=== PATIENT | female | born 1960 ===

== ENCOUNTER 2018-04-15 19:43 | Emergency (ER) | payer SELFPAY ==
[2018-04-15] MEDS ORDERED: Sodium Chloride 0.9% 1,000 ML IV STA (23:15)
[2018-04-15] MEDS ORDERED: Albuterol-Ipratrop 3 mg / 0.5 (3 ml) UD IH STA (23:15)
--- NOTE | 2018-04-15 23:21 | ED PDOC ---
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 Associated bilateral ear fullness, sore throat and intermittent fevers, 102F earlier today. Patient also reports dysuria x 1 day with associated lower abdomen and back pain. Denies nausea/vomiting, chest pain, shortness of breath , palpitations, abdominal pain, changes in bowel movements, recent travel, sick contacts. Last dose Advil taken 14:00. Past Medical History Reviewed: Historical Data, Nursing Documentation, Vital Signs Vital Signs: Last Vital Signs Temp 99.4 F 04/15/18 21:27 Pulse 84 04/15/18 21:27 Resp 19 04/15/18 21:27 BP 126/69 04/15/18 21:27 Pulse Ox 99 04/16/18 02:12 - Medical History PMH: No Chronic Diseases - Surgical History Surgical History: No Surg Hx - Family History Family History: States: Unknown Family Hx - Living Arrangements Living Arrangements: With Family - Home Medications Home Medications: Ambulatory Orders Medication Instructions Recorded Famotidine [Pepcid] 20 mg PO BID #30 tab 06/07/16 Naproxen [Naprosyn] 500 mg PO Q6 #30 tablet 06/07/16 Ciprofloxacin HCl [Cipro] 500 mg PO BID #14 tab 04/16/18 Fluticasone Nasal [Flonase] 1 actuation NS BID #1 bottle 04/16/18 guaiFENesin/Dextromethorphan 1 - 2 tab PO Q12 PRN #20 tab 04/16/18 [guaiFENesin/DM 600-30 mg] - Allergies Allergies/Adverse Reactions: Allergies Allergy/AdvReac Type Severity Reaction Status Date / Time No Known Allergies Allergy Verified 06/07/16 19:19 Review of Systems ROS Statement: Except As Marked, All Systems Reviewed And Found Negative Constitutional: Positive for: Fever, Chills ENT: Positive for: Nose Congestion, Throat Pain Respiratory: Positive for: Cough, Sputum Genitourinary Female: Positive for: Dysuria Physical Exam - Reviewed Nursing Documentation Reviewed: Yes Vital Signs Reviewed: Yes - Physical Exam Appears: Positive for: Well, Non-toxic, No Acute Distress Head Exam: Positive for: ATRAUMATIC, NORMAL INSPECTION, NORMOCEPHALIC Skin: Positive for: Normal Color Eye Exam: Positive for: Normal appearance ENT: Positive for: Nasal Congestion, Pharyngeal Erythema. Negative for: Tonsillar Exudate, Tonsillar Swelling Cardiovascular/Chest: Positive for: Regular Rate, Rhythm Respiratory: Positive for: Normal Breath Sounds Gastrointestinal/Abdominal: Positive for: Normal Exam, Bowel Sounds, Soft, Tenderness (diffuse lower discomfort to palpation. b/l flank tenderness). Negative for: Guarding, Rebound Back: Positive for: Normal Inspection, L CVA Tenderness, R CVA Tenderness Extremity: Positive for: Normal ROM Neurologic/Psych: Positive for: Alert, Oriented - Laboratory Results Result Diagrams: 04/15/18 23:40 04/15/18 23:40 - ECG O2 Sat by Pulse Oximetry: 99 - Progress ED Course And Treament: labs, flu, strep, urine, CT renal protocol, chest xray, IV fluids, IV toradol, duoneb EXAM: CT Abdomen and Pelvis Without Intravenous Contrast CLINICAL HISTORY: 57 years old, female; Pain; Abdominal pain; Flank; Left; Additional info: Flank pain TECHNIQUE: Axial computed tomography images of the abdomen and pelvis without intravenous contrast. All CT scans at this facility use at least one of these dose optimization techniques: automated exposure control; mA and/or kV adjustment per patient size (includes targeted exams where dose is matched to clinical indication); or iterative reconstruction. Coronal and sagittal reformatted images were created and reviewed. COMPARISON: No relevant prior studies available. FINDINGS: Lung bases: Unremarkable. No mass. No consolidation. ABDOMEN: Liver: Unremarkable. Gallbladder and bile ducts: Unremarkable. No calcified stones. No ductal dilation. Pancreas: Unremarkable. No ductal dilation. Spleen: Unremarkable. No splenomegaly. Adrenals: Unremarkable. No mass. 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 No distal ureteral stone is identified. Stomach and bowel: Unremarkable. No obstruction. No mucosal thickening. There is no wall thickening or pericolonic stranding to suggest colitis. PELVIS: Appendix: No findings to suggest acute appendicitis. Normal appendix. Bladder: Unremarkable. No stones. Reproductive: There is a 2.3 cm cyst in the left ovary. ABDOMEN and PELVIS: Intraperitoneal space: Unremarkable. No free air. No significant fluid collection. Bones/joints: No acute fracture. No dislocation. Soft tissues: Unremarkable. Vasculature: Unremarkable. No abdominal aortic aneurysm. Lymph nodes: Unremarkable. No enlarged lymph nodes. IMPRESSION: Mild hydroureteronephrosis without evidence of a distal ureteral stone. Findings could be secondary to recently passed stone or a nonopaque distal ureteral stone. Clinical correlation recommended. IV rocephin dose ordered On re-eval, patient states she is feeling better. Patient educated on findings, discharged with rx Cipro, Mucinex DM, flonase Advised tylenol/ibuprofen PRN fever/pain Fluids Follow up [facility] 2-3 days Return precautions given Disposition - Clinical Impression Clinical Impression: Left ovarian cyst, Pyelonephritis, URI (upper respiratory infection) - Patient ED Disposition Is Patient to be Admitted: No Counseled Patient/Family Regarding: Studies Performed, Diagnosis, Need For Followup, Rx Given - Disposition Referrals: [facility] [Outside] Disposition: Routine/Home Disposition Time: 03:45 Condition: IMPROVED Prescriptions: Ciprofloxacin HCl [Cipro] 500 mg PO BID #14 tab Fluticasone Nasal [Flonase] 1 actuation NS BID #1 bottle guaiFENesin/Dextromethorphan [guaiFENesin/DM 600-30 mg] 1 - 2 tab PO Q12 PRN # 20 tab PRN Reason: cough and congestion Instructions: Ovarian Cysts, Kidney Infection, Viral Upper Respiratory Infection, Adult (DC) Print Language: KYRGYZ
[2018-04-15] MEDS ORDERED: Albuterol-Ipratrop 3 mg / 0.5 (3 ml) UD ONE (23:40)
[2018-04-16 00:14] LABS: BASO % 0.1 % (0.0-2.0); EOS # 0.2 K/uL (0.0-0.7); EOS % 1.2 % (0.0-4.0); HEMOGLOBIN 11.9 g/dL (12.0-16.0); LYMPH # 2.4 K/uL (1.0-4.3); MEAN CELL VOLUME 88.4 fl (81.0-99.0); MEAN CORPUSCULAR HEMOGLOBIN 29.6 pg (27.0-31.0); MEAN CORPUSCULAR HGB CONC 33.5 g/dL (33.0-37.0); MEAN PLATELET VOLUME 7.7 fl (7.2-11.7); MONO # 1.3 K/uL (0.0-0.8); MONO % 9.6 % (0.0-10.0); NEUT % 72.1 % (50.0-75.0); NRBC % 0.1 % (0.0-0.0); RBC 4.02 Mil/uL (3.80-5.20); RED CELL DISTRIBUTION WIDTH 13.4 % (11.5-14.5); WHITE BLOOD COUNT 13.8 K/uL (4.8-10.8)
[2018-04-16 00:18] LABS: SQUAMOUS EPITHIAL 4 /hpf (0-5); URINE BACTERIA RARE (<OCC); URINE BILIRUBIN NEGATIVE (NEGATIVE); URINE BLOOD MODERATE (NEGATIVE); URINE CLARITY SLIGHTY-CLOUDY (Clear); URINE COLOR YELLOW (YELLOW); URINE GLUCOSE (UA) NEG (Normal); URINE LEUKOCYTE ESTERASE LARGE Leu/uL (Negative); URINE PROTEIN 30 mg/dL (NEGATIVE); URINE UROBILINOGEN 0.2-1.0 mg/dL (0.2-1.0)
[2018-04-16 00:24] LABS: ALB/GLOB RATIO 0.8 (1.0-2.1); ALBUMIN 4.4 g/dL (3.5-5.0); ALT/SGPT 30 U/L (9-52); AST/SGOT 30 U/L (14-36); BLOOD UREA NITROGEN 12 mg/dl (7-17); CALCIUM 9.4 mg/dL (8.4-10.2); GFR AFRICAN-AMERICAN > 60; GFR NON-AFRICAN AMERICAN > 60
[2018-04-16] MEDS ORDERED: cefTRIAXone (Rocephin) 1 gm Inj ONE (02:37)
[2018-04-16 04:14] VITALS: BP 100/68; PULSE 75; RESP 18; TEMP 98.3; O2SAT 97
--- NOTE | 2018-04-16 09:20 | RAD ---
HISTORY: COMPARISON: 06/07/2016. TECHNIQUE: Chest PA and lateral FINDINGS: LINES AND TUBES: None. LUNG AND PLEURA: The lungs are well inflated and clear. No pleural effusion or pneumothorax. HEART AND MEDIASTINUM: The heart is not enlarged. The hilar and mediastinal contours are within normal limits. SKELETAL STRUCTURES: The bony structures are within normal limits for the patient's age. VISUALIZED UPPER ABDOMEN: Normal. OTHER FINDINGS: None. IMPRESSION: No active pulmonary disease.
--- NOTE | 2018-04-16 10:52 | CT ---
Date of service: 04/16/2018 PROCEDURE: CT Abdomen and Pelvis without intravenous contrast HISTORY: flank pain COMPARISON: None. TECHNIQUE: Without contrast.. Contrast dose: Radiation dose: Total exam DLP = 239 mGy-cm. This CT exam was performed using one or more of the following dose reduction techniques: Automated exposure control, adjustment of the mA and/or kV according to patient size, and/or use of iterative reconstruction technique. FINDINGS: LOWER THORAX: Unremarkable. LIVER: Unremarkable. No gross lesion or ductal dilatation. GALLBLADDER AND BILE DUCTS: Unremarkable. PANCREAS: Unremarkable. No gross lesion or ductal dilatation. SPLEEN: Unremarkable. ADRENALS: Unremarkable. No mass. KIDNEYS AND URETERS: There is mild right-sided hydronephrosis and hydroureter. There is no evidence of a ureteral stone. The findings may due to a recently passed stone. There is a small 10 mm fatty lesion in the left kidney consistent with an angio myelolipoma VASCULATURE: Unremarkable. No aortic aneurysm. BOWEL: Unremarkable. No obstruction. No gross mural thickening. APPENDIX: Unremarkable. Normal appendix. PERITONEUM: Unremarkable. No free fluid. No free air. LYMPH NODES: Unremarkable. No enlarged lymph nodes. BLADDER: Unremarkable. REPRODUCTIVE: 2.3 cm cyst in the left ovary BONES: No acute fracture. OTHER FINDINGS: The report concurs with the preliminary [facility] report IMPRESSION: There is mild right-sided hydronephrosis and hydroureter. There is no evidence of a ureteral stone. The findings may due to a recently passed stone.
== END 2018-04-16 04:19 | disposition home or self-care (01) ==
LOC: H.ER 19:43
DX: J06.9 Acute upper respiratory infection, unspecified (principal); N12 Tubulo-interstitial nephritis, not specified as acute or chronic; N83.202 Unspecified ovarian cyst, left side
CPT/HCPCS: 71046; 74176; 80053; 81003; 81025; 83605; 85025; 87070; 87086; 87181; 87430; 87804; 96360; 96365; 99285; J0696; J1885; J7030

== ENCOUNTER 2018-09-03 02:31 | Emergency (ER) | payer SELFPAY ==
[2018-09-03 02:43] VITALS: TEMP 97.3
[2018-09-03] MEDS ORDERED: Morphine 4 MG/ML VIAL IV ONE (03:21)
[2018-09-03] MEDS ORDERED: Iohexol 240 (50 ml) PO ONE (03:21)
[2018-09-03] MEDS ORDERED: Sodium Chloride 0.9% 1,000 ML IV STA (03:21)
[2018-09-03] MEDS ORDERED: Morphine 4 MG/ML VIAL ONE (03:35)
[2018-09-03] MEDS ORDERED: Iohexol 240 (50 ml) ONE (03:37)
[2018-09-03 03:56] LABS: URINE BILIRUBIN NEGATIVE (NEGATIVE); URINE BLOOD SMALL (NEGATIVE); URINE CLARITY CLEAR (Clear); URINE COLOR STRAW (YELLOW); URINE GLUCOSE (UA) NEG (NEGATIVE); URINE LEUKOCYTE ESTERASE NEG Leu/uL (Negative); URINE PROTEIN NEGATIVE (NEGATIVE); URINE UROBILINOGEN 0.2-1.0 mg/dL (0.2-1.0)
[2018-09-03 04:03] LABS: ALB/GLOB RATIO 0.9 (1.0-2.1); ALBUMIN 4.6 g/dL (3.5-5.0); ALT/SGPT 42 U/L (9-52); AST/SGOT 37 U/L (14-36); BLOOD UREA NITROGEN 11 mg/dl (7-17); CALCIUM 9.6 mg/dL (8.4-10.2); GFR NON-AFRICAN AMERICAN > 60
[2018-09-03 04:19] LABS: BASO % 0.2 % (0.0-2.0); EOS # 0.9 K/uL (0.0-0.7); HEMOGLOBIN 13.3 g/dL (12.0-16.0); LYMPH # 2.9 K/uL (1.0-4.3); LYMPH % 30.3 % (20.0-40.0); MEAN CORPUSCULAR HEMOGLOBIN 29.5 pg (27.0-31.0); MEAN CORPUSCULAR HGB CONC 32.8 g/dL (33.0-37.0); MEAN PLATELET VOLUME 8.6 fl (7.2-11.7); MONO # 0.7 K/uL (0.0-0.8); MONO % 7.6 % (0.0-10.0); NEUT # 4.9 K/uL (1.8-7.0); NEUT % 51.9 % (50.0-75.0); NRBC % 0.1 % (0.0-0.0); RBC 4.52 Mil/uL (3.80-5.20); RED CELL DISTRIBUTION WIDTH 13.1 % (11.5-14.5); WHITE BLOOD COUNT 9.5 K/uL (4.8-10.8)
--- NOTE | 2018-09-03 04:32 | ED PDOC ---
HPI: Abdomen Time Seen by Provider: 09/03/18 03:00 Chief Complaint (Nursing): Back Pain Chief Complaint (Provider): Abdominal Pain History Per: Patient History/Exam Limitations: no limitations Onset/Duration Of Symptoms: Days (x3) Location Of Pain/Discomfort: LUQ Associated Symptoms: Fever, Chills, Nausea. denies: Vomiting, Diarrhea Additional Complaint(s): 58 y/o female with history of kidney infection presents to ER for evaluation of worsening left sided abdominal pain onset 3 days. Patient reports associated fever, chills and nausea. She denies any vomiting or diarrhea. PMD: non provided Past Medical History Reviewed: Historical Data, Nursing Documentation, Vital Signs Vital Signs: Last Vital Signs Temp 97.3 F L 09/03/18 02:40 Pulse 85 09/03/18 02:40 Resp 19 09/03/18 02:40 BP 93/62 L 09/03/18 02:40 Pulse Ox 100 09/03/18 02:40 LEXY report viewed?: Yes - Medical History Other PMH: Kidney infection - Surgical History Other surgeries: Ligation - Family History Family History: States: Unknown Family Hx - Social History Current smoker - smoking cessation education provided: No Alcohol: None Drugs: Denies - Home Medications Home Medications: Ambulatory Orders Medication Instructions Recorded Famotidine [Pepcid] 20 mg PO BID #30 tab 06/07/16 Naproxen [Naprosyn] 500 mg PO Q6 #30 tablet 06/07/16 Ciprofloxacin HCl [Cipro] 500 mg PO BID #14 tab 04/16/18 Fluticasone Nasal [Flonase] 1 actuation NS BID #1 bottle 04/16/18 guaiFENesin/Dextromethorphan 1 - 2 tab PO Q12 PRN #20 tab 04/16/18 [guaiFENesin/DM 600-30 mg] - Allergies Allergies/Adverse Reactions: Allergies Allergy/AdvReac Type Severity Reaction Status Date / Time No Known Allergies Allergy Verified 06/07/16 19:19 Review of Systems ROS Statement: Except As Marked, All Systems Reviewed And Found Negative Constitutional: Positive for: Fever, Chills Gastrointestinal: Positive for: Nausea, Abdominal Pain (LUQ). Negative for: Vomiting, Diarrhea Physical Exam - Reviewed Nursing Documentation Reviewed: Yes Vital Signs Reviewed: Yes - Physical Exam Appears: Positive for: Non-toxic, No Acute Distress Head Exam: Positive for: ATRAUMATIC, NORMOCEPHALIC Skin: Positive for: Normal Color, Warm, Dry Eye Exam: Positive for: Normal appearance, EOMI, PERRL Neck: Positive for: Normal, Painless ROM, Supple Cardiovascular/Chest: Positive for: Regular Rate, Rhythm. Negative for: Murmur Respiratory: Positive for: Normal Breath Sounds. Negative for: Wheezing Gastrointestinal/Abdominal: Positive for: Tenderness (slight to LUQ) Back: Positive for: Normal Inspection. Negative for: L CVA Tenderness, R CVA Tenderness Extremity: Positive for: Normal ROM. Negative for: Pedal Edema, Deformity Neurologic/Psych: Positive for: Alert, Oriented (x3) - Laboratory Results Result Diagrams: 09/03/18 03:20 09/03/18 03:20 - ECG O2 Sat by Pulse Oximetry: 100 (RA) Pulse Ox Interpretation: Normal Medical Decision Making Medical Decision Making: Time: 320 Initial Plan: --Abdomen/Pelvis CT --CMP --Troponin --CBC --Morphine 4 mg --Iohexol 50 ml PO --Zofran 4 mg IV --Urine culture --Urinalysis [address] Escobar, pending abdomen/pelvis CT. Scribe Attestation: Documented by Trish Frausto, acting as a scribe for Aung Persaud MD. Provider Scribe Attestation: All medical record entries made by the Scribe were at my direction and personally dictated by me. I have reviewed the chart and agree that the record accurately reflects my personal performance of the history, physical exam, medical decision making, and the department course for this patient. I have also personally directed, reviewed, and agree with the discharge instructions and disposition. Disposition - Clinical Impression Clinical Impression: Abdominal pain - Patient ED Disposition Is Patient to be Admitted: Transfer of Care - Disposition Disposition: Transfer of Care Disposition Time: 07:00 Condition: STABLE Forms: [employer] ([place])
[2018-09-03] MEDS ORDERED: Iohexol 300 100 ML IJ ONE (05:49)
[2018-09-03] MEDS ORDERED: Sodium Chloride 0.9% 50 ML IV ONE (05:49)
[2018-09-03 08:17] VITALS: BP 112/64; PULSE 88; RESP 18; O2SAT 99
--- NOTE | 2018-09-03 10:50 | CT ---
Date of service: 09/03/2018 PROCEDURE: CT Abdomen and Pelvis with contrast HISTORY: Left-sided abdominal pain. COMPARISON: 04/16/2018. CT abdomen and pelvis. Summary of findings on the comparison examination: Right-sided hydronephrosis and hydroureter. TECHNIQUE: Intravenous contrast dose: 80 cc Omnipaque 300 Radiation dose: Total exam DLP = 278.20 mGy-cm. This CT exam was performed using one or more of the following dose reduction techniques: Automated exposure control, adjustment of the mA and/or kV according to patient size, and/or use of iterative reconstruction technique. FINDINGS: LOWER THORAX: Unremarkable. LIVER: Unremarkable. No gross lesion or ductal dilatation. GALLBLADDER AND BILE DUCTS: Unremarkable. PANCREAS: Unremarkable. No gross lesion or ductal dilatation. SPLEEN: Unremarkable. ADRENALS: Unremarkable. No mass. KIDNEYS AND URETERS: Unremarkable. No hydronephrosis. No solid mass. VASCULATURE: Unremarkable. No aortic aneurysm. No atherosclerotic calcification or mural plaque present. BOWEL: Diverticulosis without an acute inflammatory component or other associated pathologic process. APPENDIX: No abnormalities to suggest acute appendicitis. No right lower quadrant inflammatory processes identified. PERITONEUM: Unremarkable. No free fluid. No free air. LYMPH NODES: Unremarkable. No enlarged lymph nodes. BLADDER: Unremarkable. REPRODUCTIVE: Stable cystic mass likely originating from the left adnexa adjacent to the urinary bladder measures 2.2 x 3.1 cm. BONES: No acute fracture. Expansile changes with cortical thickening left ischium and acetabular region consistent with Paget's disease and unchanged compared to prior study OTHER FINDINGS: None. IMPRESSION: No acute findings related to/ accounting for the clinical presentation. Additional benign and/or incidental findings described above. No significant interval change compared to the prior examination(s). Concordant results (preliminary interpretation) provided by [employer]. Procedure Completed: 06:15. Preliminary Report: Dictated and Authenticated: 06:43. Final Interpretation: 10:45.
== END 2018-09-03 07:40 | disposition home or self-care (01) ==
LOC: H.ER 02:31
DX: R10.9 Unspecified abdominal pain (principal); N83.202 Unspecified ovarian cyst, left side; K57.90 Diverticulosis of intestine, part unspecified, without perforation or abscess without bleeding; R31.9 Hematuria, unspecified; R73.09 Other abnormal glucose
CPT/HCPCS: 74177; 80053; 81003; 84484; 85025; 87086; 96374; 99283; J1885; J2270; J2405; J7030; Q9966; Q9967